=== PATIENT | female | born 1950 | race Caucasian/White ===

== ENCOUNTER 2020-07-21 21:53 | Inpatient (IN) | payer MEDICARE ==
[~2020-07-21] VITALS: Ht 157.5 cm; Wt 49.0 kg
[2020-07-21 21:54] VITALS: BP 108/57
[2020-07-21 22:50] LABS: BE -3.2 mmol/L (-2 to +3); PO2 99.1 mmHg (75.0-100.0); pH 7.495 (7.340-7.450)
[2020-07-21 23:03] LABS: ABSOLUTE BASOPHILS 0.1 thou/uL (0.0-0.2); ABSOLUTE LYMPHOCYTES 1.6 thou/uL (0.8-5.3); ABSOLUTE MONOCYTES 0.9 thou/uL (0.0-1.2); ABSOLUTE NEUTROPHILS 11.3 thou/uL (1.6-8.1); BASOPHILS 0.6 %; EOSINOPHILS 0.1 %; HEMATOCRIT 32.7 % (37.0-47.0); HEMOGLOBIN 10.2 gm/dL (12.0-15.0); LYMPHOCYTES 11.8 %; MCH 23.8 pg (26.0-34.0); MCV 76.8 fL (80.0-100.0); MONOCYTES 6.6 %; MPV 8.6 fl. (7.2-11.1); NUCLEATED RBCS 0 /100WBC; PLATELET COUNT* 362 thou/uL (150-400); POLYS 80.9 %; RBC 4.27 mil/uL (4.20-5.00); RDW-CV 18.4 % (10.5-14.5)
[2020-07-21 23:07] LABS: CALCIUM 8.3 mg/dL (8.5-10.1); CREATININE 0.7 mg/dL (0.6-1.3); POTASSIUM 3.8 mmol/L (3.5-5.1)
[2020-07-21 23:11] LABS: ALBUMIN 2.3 g/dL (3.4-5.0); TOTAL BILIRUBIN 0.4 mg/dL (<0.1-1.0); TOTAL PROTEIN 7.9 g/dL (6.4-8.2)
[2020-07-22 01:52] LABS: APTT 28.2 Seconds (25.0-31.3); PROTIME 10.8 Seconds (9.20-11.50)
[2020-07-22 02:30] VITALS: BP 103/54
[2020-07-22 02:48] VITALS: BP 112/58
--- NOTE | 2020-07-22 03:00 | NUR ---
RECEIVED REPORT FROM ER, PT TO ROOM. AMBULATED FROM CART TO BED WITH STEADY GAIT. LT LOWER LEG RED, INFLAMMED AND STATES PAINFUL, ELEVATED ON PILLOW. SEE ADMISSION ASSESSMENT AND HX. BOX MEAL ATE. WILL CONT TO MONITOR AND ASSIST NEEDED.
[2020-07-22 11:00] VITALS: BP 98/53
--- NOTE | 2020-07-22 12:48 | NUR ---
Pt is A&O. Resides at home with . Independent.No DME. Pt currently with HH, plans to resume at dc. No hx of SNF. Anticipate dc in a few days.
--- NOTE | 2020-07-22 14:26 | EKG ---
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 : 1950 Requested By: Franck Jacome Order Number: [id number] Danny MD: Pool Braun Measurements Intervals [place] Rate: 87 P: 22 MA: 141 QRS: 54 QRSD: 77 T: 64 QT: 378 QTc: 455 Interpretive Statements Sinus rhythm Atrial premature complexes Probable anteroseptal infarct, old possible No previous ECG available for comparison Electronically Signed On 07-22-2020 14:26:26 CDT by Pool Braun [email or web address] <ELECTRONICALLY SIGNED> By: Pool Braun MD, [facility] 07/22/20 1426 04 04 Pool Braun MD, [facility] /EPI
[2020-07-22 16:28] VITALS: BP 94/47
--- NOTE | 2020-07-22 18:58 | NUR ---
I ASSUMED CARE OF THE PATIENT AT 0700. SHE IS ALERT AND ORIENTED X4 AND IS UP WITH ASSIST OF ONE. BED IS IN THE LOW LOCKED POSITION AND CALL LIGHT IS IN REACH. HOURLY ROUNDING IS COMPLETED AND PATIENT NEEDS ARE MET. PAIN IS DENIED. SHE IS EMOTIONAL ABOUT HER OSTOMY BAG WELL THE POSSIBILITY OF CANCER AGAIN. SEVERAL TESTS WERE COMPLETED AND PATIENT WAS TRANSFERED TO [facility] A DOWNGRADE. TYLENOL WAS GIVEN FOR A FEVER AND DR MARTINEZ WAS CONTACTED ABOUT SIGNS OF SEPSIS. WILL CONTINUE TO MONITOR.
[2020-07-22 19:45] VITALS: BP 100/45
[2020-07-23 02:06] LABS: GLYCOHEMOGLOBIN (HGB A1C) 5.8 % (4.8-5.6)
[2020-07-23 04:16] VITALS: BP 112/48
[2020-07-23 04:25] LABS: HEMATOCRIT 25.6 % (37.0-47.0); MCH 24.3 pg (26.0-34.0); MCHC 31.6 g/dL (28.0-37.0); MPV 8.8 fl. (7.2-11.1); RBC 3.32 mil/uL (4.20-5.00); RDW-CV 18.3 % (10.5-14.5); WBC 8.4 thou/uL (4.0-11.0)
[2020-07-23 04:39] LABS: HEMOGLOBIN 8.1 gm/dL (12.0-15.0)
[2020-07-23 04:43] LABS: URINE BILIRUBIN NEGATIVE (Negative); URINE BLOOD NEGATIVE (Negative); URINE CLARITY CLEAR; URINE COLOR YELLOW; URINE GLUCOSE-RANDOM NEGATIVE (Negative); URINE KETONES NEGATIVE (Negative); URINE LEUKOCYTES-REFLEX NEGATIVE (Negative); URINE NITRITE-REFLEX NEGATIVE (Negative); URINE PROTEIN NEGATIVE (Negative); URINE UROBILINOGEN 0.2 E.U./dl (0.2-1.0)
[2020-07-23 04:48] LABS: ALBUMIN 1.7 g/dL (3.4-5.0); CALCIUM 7.8 mg/dL (8.5-10.1); CREATININE 0.6 mg/dL (0.6-1.3); POTASSIUM 3.7 mmol/L (3.5-5.1); TOTAL BILIRUBIN 0.2 mg/dL (<0.1-1.0); TOTAL PROTEIN 6.5 g/dL (6.4-8.2)
--- NOTE | 2020-07-23 05:19 | NUR ---
PT SLEPT WELL OVERNIGHT, NO COMPLAINTS OF PAIN REQUIRING PAIN MEDICATION, STATES LLE "SORE". LLE SL EDEMATOUS, ELEVATED ON PILLOW. UROSTOMY WITH GOOD URINE OUTPUT THIS SHIFT, SPECIMEN SENT TO LAB ORDERED. RFA IVF INFUSING PER PUMP, ABX GIVEN ORDERED. TEMP MAX 98.7 OVERNIGHT. ROOM AIR SAT 99%. PT MOVES ABOUT IN BED INDEP. AM LABS DRAWN. ABLE TO USE CALL LITE AND MAKE NEEDS KNOWN.
[2020-07-23 09:00] VITALS: BP 98/53
--- NOTE | 2020-07-23 12:39 | NUR ---
Continue IVabx. Oncology following. Pulm consulted. Resume HH at dc
--- NOTE | 2020-07-23 13:23 | 2DMMODE ---
[place] [address] 2 D/M-MODE ECHOCARDIOGRAM Name: ADRIANO CAN Room: [address] ADM IN .R.#: [id number] Admission: 07/22/20 Attend Phys: Carolyn Jacome MD Discharge: Date of : 50 Date of Service: 07/23/20 1323 Report #: [id number] THIS REPORT FOR: cc: FAM - No family physician/PCP FAM - No family physician/PCP Alan Dallas MD [facility] ~ APPROVED REPORT Study performed: 07/23/2020 11:01:19 EXAM: Comprehensive 2D, Doppler, and color-flow Echocardiogram Patient Location: Bedside BSA: 1.47 HR: 78 bpm BP: 112/48 mmHg Other Information Study Quality: Good Indications Fluid Overload, Weakness 2D Dimensions IVSd: 9.08 (7-11mm) LVOT Diam: 18.67 (18-24mm) LVDd: 39.97 mm PWd: 8.56 (7-11mm) Ascending Ao: 30.36 (22-36mm) LVDs: 25.40 (25-40mm) Aortic Root: 27.63 mm Volumes Left Atrial Volume (Systole) LA ESV Index: 24.40 mL/m2 Aortic Valve AoV Peak Robert.: 1.17 m/s AO Peak Gr.: 5.51 mmHg LVOT Max P.32 mmHg AO Mean Gr.: 2.94 mmHg LVOT Mean P.42 mmHg LVOT Max V: 0.91 m/s AO V2 VTI: 24.65 cm LVOT Mean V: 0.54 m/s RACHEL (VTI): 2.19 cm2 LVOT V1 VTI: 19.73 cm Mitral Valve E/A Ratio: 0.97 [place] [address] 2 D/M-MODE ECHOCARDIOGRAM Name: ADRIANO CAN Room: [address] IN ..#: [id number] Admission: 07/22/20 Attend Phys: Carolyn Jacome MD Discharge: Date of : 50 Date of Service: 07/23/20 1323 Report #: [id number] MV Decel. Time: 155.40 ms MV E Max Robert.: 1.03 m/s MV PHT: 45.06 ms MVA (PHT): 4.88 cm2 TDI E/Lateral E': 10.30 E/Medial E': 7.36 Medial E' Robert.: 0.14 m/s Lateral E' Robert.: 0.10 m/s Pulmonary Valve PV Peak Robert.: 0.72 m/s PV Peak Gr.: 2.09 mmHg Tricuspid Valve RAP Estimate: 5.00 mmHg TR Peak Gr.: 27.36 mmHg RVSP: 32.36 mmHg PA Pressure: 32.36 mmHg Left Ventricle The left ventricle is normal size. There is normal LV segmental wall motion. There is normal left ventricular wall thickness. Left ventricular systolic function is normal. LVEF is 55-60%. Left ventricular filling pattern is normal for age. Right Ventricle The right ventricle is normal size. The right ventricular systolic function is normal. Atria The left atrium size is normal. The right atrium size is normal. Aortic Valve The aortic valve is normal in structure. No aortic regurgitation is present. There is no aortic valvular stenosis. Mitral Valve The mitral valve is normal in structure. Trace mitral regurgitation. No evidence of mitral valve stenosis. Tricuspid Valve The tricuspid valve is normal in structure. Mild tricuspid regurgitation. The RVSP is 30-35 mmHg. Pulmonic Valve The pulmonary valve is normal in structure. [place] [address] 2 D/M-MODE ECHOCARDIOGRAM Name: ADRIANO CAN Room: [address] IN [facility]#: [id number] Admission: 07/22/20 Attend Phys: Carolyn Jacome MD Discharge: Date of : 50 Date of Service: 07/23/20 1323 Report #: [id number] valvular regurgitation. Great Vessels The aortic root is normal in size. IVC is normal in size and collapses >50% with inspiration. Pericardium There is no pericardial effusion. <Conclusion> The left ventricle is normal size. There is normal left ventricular wall thickness. LVEF is 55-60%. Left ventricular filling pattern is normal for age. There is normal LV segmental wall motion. Trace mitral regurgitation. Mild tricuspid regurgitation. The RVSP is 30-35 mmHg. IVC is normal in size and collapses >50% with inspiration. <ELECTRONICALLY SIGNED> By: Alan Dallas MD, FACC 07/23/20 1323 132 132 Alan Dallas MD, FACC /INF
[2020-07-23 15:45] VITALS: BP 114/51
--- NOTE | 2020-07-23 17:37 | NUR ---
PATIENT RESTING IN BED. PATIENT IS UP WITH ASSIST. PATIENT DENIES ANY PAIN. PATIENT HAS SLEPT OFF AND ON THROUGHOUT DAY. PATIENT HAS GOOD APPETITE. LLE ELEVATED ON PILLOWS. PATIENT DENIES ANY NEEDS AT THIS TIME. CALL LIGHT WITHIN REACH.
[2020-07-23 20:00] VITALS: BP 123/67
[2020-07-24 04:20] LABS: HEMATOCRIT 26.9 % (37.0-47.0); HEMOGLOBIN 8.5 gm/dL (12.0-15.0); MCH 24.1 pg (26.0-34.0); MCHC 31.5 g/dL (28.0-37.0); MCV 76.3 fL (80.0-100.0); MPV 9.1 fl. (7.2-11.1); RBC 3.53 mil/uL (4.20-5.00); RDW-CV 18.5 % (10.5-14.5); WBC 8.3 thou/uL (4.0-11.0)
[2020-07-24 04:57] LABS: ALBUMIN 1.7 g/dL (3.4-5.0); CALCIUM 8.2 mg/dL (8.5-10.1); CREATININE 0.6 mg/dL (0.6-1.3); MAGNESIUM 1.8 mg/dL (1.8-2.4); POTASSIUM 3.5 mmol/L (3.5-5.1); TOTAL BILIRUBIN 0.2 mg/dL (<0.1-1.0); TOTAL PROTEIN 6.4 g/dL (6.4-8.2)
--- NOTE | 2020-07-24 06:27 | NUR ---
Alert and oriented x 4. She has a urostomy and takes care of it herself. Last eveing it began leaking. She also was incontinent of loose BM. She was very tearful. I did fix the leaked edges with tegaderm and it did hold up most of this shift but it broke this am and a new urostomy bag was applied. I also placed the bag to a vital bag so that she won't have to empty it as much and worry about it. She did take a shower last evening and her bed was changed. L foot and ankle is red and edemedous,picture taken last evening and placed in the chart. She also has some scabbed areas on her rt lower leg/chaidez area and picture was atken and bandaids placed. L upper thigh has scabbed areas and picture was taken and placed in chart and bandaid applied. This am she is NPO since [address] abdomen/pelvis. This am MG+ is low and I will start IV MG+.
[2020-07-24 07:40] VITALS: BP 112/67
[2020-07-24 09:44] VITALS: BP 112/67
[2020-07-24] MEDS ORDERED: MINOCYCLINE HC100 M2 PO (09:45)
--- NOTE | 2020-07-24 09:54 | NUR ---
Pt discharing home today. Updated and faxed resumption orders to [facility] p:[phone] f:[phone]. Updated Pt's dtr, will provide dc transportation.
--- NOTE | 2020-07-24 11:00 | NUR ---
PT A&OX4 VSS. PT NPO AT TIME OF ASSESSMENT FOR PLANNED PROCEDURES. PT UP SBA, GAIT STEADY. UROSTOMY BAG CHANGED ON NOC SHIFT. MAGNESIUM REPLACED BY IV. IV TO R WRIST PATENT, DRESSING C/D/I. ROCEFIN ADMINISTERED ORDERED, INFUSION COMPLETED. PT STATES SHE IS READY TO GO AND HAS CONTACTED SPOUSE TO "COME GET HER". IV DC'D PRIOR TO PT LEAVING UNIT, NO ACTIVE BLEEDING OBSERVED AT SITE. PT DRESSED INDEPENDENTLY. PT AMBULATED TO NURSES STATION WITH SPOUSE AND DECLINED TO REMAIN FOR DISCHARGE EDUCATION. NURSING STAFF PRESENT. PT WALKED FROM UNIT WITH SPOUSE DECLINING A WHEELCHAIR OR STAFF ESCORT. 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
--- NOTE | 2020-07-24 15:57 | NUR ---
PT. DISCHARGED HOME PRIOR TO O.T. EVAL. PLEASE ORDER FURTHER O.T. SERVICES IF NEEDED.
--- NOTE | 2020-07-27 15:08 | CON ---
[address] [address] CONSULTATION Name: ADRIANO CAN Room: [address] IN M.R.#: [id number] Admission: 07/22/20 Attend Phys: Carolyn Jacome MD Discharge: 07/24/20 Date of : 50 Report #: [id number] THIS REPORT FOR: cc: RAMÍREZ - Batsheva family physician/PCP RAMÍREZ - No family physician/PCP Hasmukh Aponte MD ~ DOC #: [id number] Hasmukh Aponte MD DATE OF CONSULTATION: 07/23/2020 CONSULT REQUESTED BY: Dr. Olivares. HISTORY OF PRESENT ILLNESS: This is a 69 years old female, past medical history includes an extensive history of smoking, discontinued a few months ago. She describes a history consistent with COPD; however, has not previously been diagnosed. The patient does have a history of bladder cancer and is status post recent surgery for this and currently has a urostomy. At this time, the patient is admitted with swelling and erythema of the left lower extremity and findings are consistent with cellulitis. The patient has had venous Dopplers of the left lower extremity performed, which were negative. She also did have a CT chest performed, which shows multiple nodules consistent with metastatic disease. Her D-dimer was elevated. There is a perfusion scan performed though, which is normal. At this time, the patient continues to complain of pain in the left lower extremity. She does have some shortness of breath, but she says that this is unchanged compared with her baseline. She does not have a significant cough. There is no chest pain. She does not have upper respiratory complaints. She answers to the negative for 12 questions for review of systems, except as mentioned above. PAST MEDICAL HISTORY: Bladder cancer, status post urostomy, status post recent total hysterectomy and cystectomy. SOCIAL HISTORY: There is an extensive history of smoking. The patient says that she has not smoked since March, previously smoked for several decades. No known history of heavy alcohol use. Does have a history of marijuana use. FAMILY HISTORY: No pertinent family history. CURRENT MEDICATIONS: List in CoNarrative reviewed. ALLERGIES: [place] [address] CONSULTATION Name: ADRIANO CAN Room: [address]#: [id number] Admission: 07/22/20 Attend Phys: Carolyn Jacome MD Discharge: 07/24/20 Date of : 50 Report #: [id number] PHYSICAL EXAMINATION: GENERAL: She is alert, awake and oriented, does not appear to be in any distress. VITAL SIGNS: She is not on supplemental oxygen, is saturating 100%, has a pulse of 79, and a blood pressure of 114/51. Respiratory rate is 14-16. She is afebrile with a temperature of 36.6. She did have a high-grade fever yesterday up to 38.6. HEENT: Normocephalic and atraumatic. Pupils are equal and reactive. There is no throat erythema. Mucous membranes are moist. NECK: Does not show raised JVP, asymmetry, mass or lymph nodes. CHEST: Symmetrical expansion on inspection and palpation. On auscultation, breath sounds are mildly decreased. No added sounds. HEART: Regular. There is no murmur. ABDOMEN: Soft and nontender. LOWER EXTREMITIES: Show 2+ edema and erythema on the left side. There is no edema and no erythema on the right side. SKIN: However, is dry and intact. NEUROLOGIC: Moves all extremities bilaterally equally and spontaneously with no focal deficit identified. IMAGING: The patient's CT chest films and report are reviewed. Q scan report in CoNarrative reviewed. Venous Doppler report in CoNarrative reviewed. ASSESSMENT AND PLAN: 1. Lung nodules. These are highly consistent with metastatic disease. Note, that the patient did have bladder cancer recently. The patient also reports that she is aware of previous lung nodules. I would have, otherwise, deferred further followup of this for outpatient. However, it is noted that the patient does have significant swelling of left lower extremity and I want to verify that this is not related to any intra-abdominal process. Therefore, I went ahead and ordered a staging carrington-CT neck, chest as well as abdomen and pelvis with IV, as well as p.o. contrast. If no pertinent acute abdominal findings are noted on the CT, this could be further followed up as an outpatient as well. 2. Cellulitis, left lower extremity. Agree with current antibiotics. 3. Chronic obstructive pulmonary disease, history is consistent with this. The patient has not been previously diagnosed. Recommend remaining off cigarettes and may benefit from outpatient workup. 4. Evaluation for thromboembolic phenomena. Note, that the venous Dopplers are negative and a perfusion scan is normal. Echocardiogram also reviewed, which shows a left ventricular ejection fraction of 55-60%, with a pulmonary artery systolic only mildly elevated to around 30-35. Thanks for this consultation. [address] [address] CONSULTATION Name: ADRIANO CAN Room: [address] IN M.R.#: [id number] Admission: 07/22/20 Attend Phys: Carolyn Jacome MD Discharge: 07/24/20 Date of : 50 Report #: [id number] MD CANDIDA Overton/NIDHI <ELECTRONICALLY SIGNED> By: Hasmukh Aponte MD 07/27/20 1508 [id number] Aponte MD /radha
== END 2020-07-24 11:00 | disposition home health service (06) | DRG 602 ==
LOC: M.ERS 21:53 → M.ORTHSURG 07-22 01:57 → M.TBA-ER 07-22 01:57 → M.2W 07-22 01:57 → M.ORTHSURG 07-22 18:48
PROVIDERS: Internal Medicine; Personal Emergency Response Attendant; ADMIT Family Medicine; ATTEND Family Medicine
DX: L03.116 Cellulitis of left lower limb (principal); E43 Unspecified severe protein-calorie malnutrition; S22.069A Unspecified fracture of T7-T8 vertebra, initial encounter for closed fracture; S22.41XA Multiple fractures of ribs, right side, initial encounter for closed fracture; L03.114 Cellulitis of left upper limb; L03.113 Cellulitis of right upper limb; N39.0 Urinary tract infection, site not specified; R65.10 Systemic inflammatory response syndrome (SIRS) of non-infectious origin without acute organ dysfunction; Z68.1 Body mass index [BMI] 19.9 or less, adult; C78.00 Secondary malignant neoplasm of unspecified lung; B96.89 Other specified bacterial agents as the cause of diseases classified elsewhere; R91.8 Other nonspecific abnormal finding of lung field; J44.9 Chronic obstructive pulmonary disease, unspecified; F17.210 Nicotine dependence, cigarettes, uncomplicated; W18.39XA Other fall on same level, initial encounter; Z20.822 Contact with and (suspected) exposure to COVID-19; Y93.89 Activity, other specified; Z85.51 Personal history of malignant neoplasm of bladder; Y92.89 Other specified places as the place of occurrence of the external cause; Y99.8 Other external cause status; Z90.710 Acquired absence of both cervix and uterus; Z88.8 Allergy status to other drugs, medicaments and biological substances